=== PATIENT | female | born 1990 | race Caucasian/White ===

== ENCOUNTER 2017-03-19 12:45 | Inpatient (IN) | payer BC, OTHER ==
[2017-03-19] MEDS ORDERED: CARBOPROST TROMETHAMINE 250 MCG/ML 1 ML AMP IM PRN (13:53)
[2017-03-19] MEDS ORDERED: OXYTOCIN 10 UNIT/ML 1 ML VIAL IM PRN (13:53)
[2017-03-19] MEDS ORDERED: PENICILLIN G POTASSIUM 5,000,000 UNIT in DEXTROSE 5% IN WATER 100 ML IV STA ×2 (13:53)
[2017-03-19] MEDS ORDERED: METHYLERGONOVINE 0.2 MG/ML 1 ML AMP IM PRN (13:53)
[2017-03-19] MEDS ORDERED: TERBUTALINE 1 MG/ML VIAL SQ PRN (13:53)
[2017-03-19] MEDS ORDERED: LIDOCAINE 1% (PF) 10 MG/ML (30 ML SDV) SQ PRN (13:53)
[2017-03-19] MEDS ORDERED: OXYTOCIN 20 UNITS/1000 ML NS 1,000 ML IV SCH ×2 (14:00→23:45)
[2017-03-19] MEDS: LACTATED RINGERS 1,000 ML IV SCH ×2 (14:19→20:01)
[2017-03-19 14:39] LABS: Basophils % (A) 0 %; CH 28.2; Eosinophils # (A) 0.1 k/uL (0-0.7); Eosinophils % (A) 1 %; HCT 35.9 % (34.0-46.0); HDW 2.84; HGB 12.4 gm/dL (11.4-16.0); Luc # (Auto) 0.41; Luc % (Auto) 4; Lymphocytes # (A) 1.9 k/uL (1.0-4.8); Lymphocytes % (A) 19 %; MCH 29.6 pg (25.0-35.0); MCHC 34.5 g/dL (31.0-37.0); MCV 85.9 fL (80.0-100.0); Mean Platelet Volume 8.3; Monocytes # (A) 0.3 k/uL (0-1.0); Monocytes % (A) 3 %; Neutrophils # (A) 7.2 k/uL (1.3-7.7); Neutrophils % (A) 73 %; RBC 4.18 m/uL (3.80-5.40); WBC 9.9 k/uL (3.8-10.6); WBC (Perox) 10.19
[2017-03-19 14:50] VITALS: BMI 35.7
--- NOTE | 2017-03-19 16:12 | P.HPOB ---
History of Present Illness H&P Date: 03/19/17 Chief Complaint: My water broke at 1040 this morning, clear fluid. This is a 26-year-old white female 2 para 1001 EDC 03/26/2017 at 39 weeks gestation. Patient presented this afternoon to labor and delivery with the history of her water breaking this morning at 10:44 AM, clear fluid. She has had only rare mild uterine contractions to follow. Fetus is been active throughout the . history: Blood type is O+, rubella status immune. [place] strep cultures positive. Hepatitis B surface antigen, HIV testing, gonorrhea and chlamydia cultures, Pap smear all negative. One-hour Glucola 139, repeat 147 with normal three-hour GTT. Rubella status is immune. Hemoglobin A1c 5.4. Past medical history is significant for anxiety. Past surgical history wisdom teeth extracted in the past. Current medications Zoloft 50 mg daily, vitamin daily. ALLERGIES none known. Family history significant for Crohn's disease, insulin-dependent diabetes, and cerebral palsy. Reproductive history patient had a vaginal delivery at 42 weeks gestation of 7 lbs. 14 oz. female at [facility]. This baby has a history of seizures. On exam this is a pleasant white female, 5 foot 9 inches, 242 pounds, blood pressure on admission 118/74, general physical exam within normal limits. heart tones are in the 130s with frequent accelerations consistent with reactive NST. Uterine contractions are occurring spontaneously approximately every 5 minutes apart of mild intensity. Cervix is 4 cm dilated, 60-70% effaced , -2 station, vertex presentation. One dose of penicillin G antibiotics has been given at time of this dictation. Impression: 39 week intrauterine , spontaneous amniorrhexis, in early phases of labor. Positive group B strep cultures, one dose of antibiotics received. Plan we will proceed with oxytocin augmentation. Continue close maternal and surveillance. Continue penicillin G per hospital protocol. Anticipate normal spontaneous vaginal delivery. Review of Systems Negative except as in HPI Past Medical History Past Medical History: No Reported History History of Any Multi-Drug Resistant Organisms: None Reported Past Surgical History: No Surgical Hx Reported Past Anesthesia/Blood Transfusion Reactions: No Reported Reaction Additional Past Anesthesia/Blood Transfusion Reaction / Comment(s): Grandmother allergic to a lot of anesthesia medications and had difficulty breathing on one occasion. Past Psychological History: Anxiety Smoking Status: Former smoker Past Alcohol Use History: None Reported Past Drug Use History: None Reported Medications and Allergies Home Medications Medication Instructions Recorded Confirmed Type Ferrous Sulfate [Feosol] 325 mg PO DAILY 03/19/17 03/19/17 History Pnv,Calcium 72/Iron/Folic Acid 1 tab PO DAILY 03/19/17 03/19/17 History [ Plus Tablet] Sertraline [Zoloft] 50 mg PO DAILY 03/19/17 03/19/17 History Allergies Allergy/AdvReac Type Severity Reaction Status Date / Time No Known Allergies Allergy Verified 03/19/17 12:51 Exam - Vital Signs Vital signs: Vital Signs Temp Pulse Resp BP Pulse Ox 03/19/17 14:41 96.4 F L 90 16 100/58 03/19/17 12:55 97.9 F 87 18 118/74 98 Intake and Output 03/19/17 03/19/17 03/19/17 06:59 14:59 22:59 Other: # Voids 2 # Bowel Movements 0 Weight 109.769 kg Patient Weight 03/20/17 06:59 Weight 109.769 kg As noted under HPI. Results Result Diagrams: 03/19/17 14:02 Abnormal Lab Results - Last 24 Hours (Table) 03/19/17 Range/Units 14:02 RDW 16.0 H (11.5-15.5) % Assessment and Plan Plan: Continue penicillin G prophylaxis per hospital protocol. Anticipate 2 doses received prior to delivery. Begin oxytocin augmentation per hospital protocol. Continue close maternal and surveillance. Anticipate normal spontaneous vaginal delivery. Time with Patient: Less than 30
[2017-03-19] MEDS: PENICILLIN G POTASSIUM 2,500,000 UNIT in DEXTROSE 5% IN WATER 100 ML IV SCH ×4 (18:20→22:24)
[2017-03-19] MEDS ORDERED: SODIUM CHLORIDE 0.9% 100 ML BAG ONE (20:04)
[2017-03-19] MEDS ORDERED: fentaNYL (PF) 50 MCG/ML 5 ML AMP ONE (20:04)
[2017-03-19] MEDS ORDERED: BUPIVACAINE (PF) 0.25% 30 ML VIAL ONE (20:04)
[2017-03-19] MEDS ORDERED: BUPIVACAINE (PF) 0.25% 25 ML, fentaNYL (PF) 200 MCG in SODIUM CHLORIDE 0.9% 71 ML EPIDURAL ONE (20:44)
--- NOTE | 2017-03-19 23:31 | P.PROBDLV ---
Vaginal Delivery Note - . Vaginal Delivery Note: Findings: Female in the vertex right occiput anterior position with Apgars of 9 at 1 minute and 9 at 5 minutes. Weight pending at time of this dictation. Intact, three-vessel cord placenta with marginal cord insertion noted. Second-degree perineal laceration. EBL approximately 150 mL's. Delivery summary: This is a 26-year-old 2 para 1001 woman who presented at 39 weeks gestation with spontaneous rupture of membranes not in active labor. She is known group B strep positive and prophylactic antibiotics were initiated per protocol. Upon admission she was 4 cm dilated and she had slow progression to 5 cm dilated. She received an epidural anesthetic and Pitocin augmentation was initiated. At 7 cm dilated large for bag was artificially ruptured and copious clear fluid was noted. She then rapidly progressed to complete cervical dilation. She was repositioned, prepped and draped in the dorsal modified lithotomy position. With maternal effort 3 the head rapidly delivered from the right occiput anterior position. The nose and mouth were bulb suctioned. The anterior followed by the posterior shoulders were delivered without difficulty and the rest of the infant was delivered onto the field. The nose and mouth were further bulb suctioned. The infant was placed on the maternal abdomen where the cord was clamped and cut. Evaluation the delivery room showed Apgars of 9 at 1 minute and 9 at 5 minutes. The perineum was inspected and a shallow second-degree laceration was noted. This was infused with lidocaine and repaired with 3-0 Vicryl suture in the usual fashion. An intact, three-vessel cord placenta was expressed. This was inspected and a marginal cord insertion was noted. The uterus was massaged and was noted to be firm. The rest of the vagina and the cervix were inspected and no further lacerations were noted. The uterus was firm at the level of the umbilicus. Both mother and infant were doing well post delivery in the room.
[2017-03-19] MEDS ORDERED: SIMETHICONE 80 MG CHEWABLE PO PRN (23:32)
[2017-03-19] MEDS ORDERED: HYDROCORTISONE 2.5% RECTAL CREAM 30 GM TUBE RECTAL PRN (23:32)
[2017-03-19] MEDS ORDERED: LANOLIN CREAM 5 GM TUBE TOPICAL PRN (23:32)
[2017-03-19] MEDS ORDERED: WITCH HAZEL 1 EACH MED..PAD TOPICAL PRN (23:32)
[2017-03-19] MEDS ORDERED: diphenhydrAMINE 50 MG CAP PO PRN (23:32)
[2017-03-19] MEDS ORDERED: diphenhydrAMINE 50 MG/ML 1 ML VIAL IVP PRN ×2 (23:32)
[2017-03-19] MEDS ORDERED: ZOLPIDEM 5 MG TAB PO PRN (23:32)
[2017-03-19] MEDS ORDERED: diphenhydrAMINE 25 MG CAP PO PRN (23:32)
[2017-03-19] MEDS ORDERED: BENZOCAINE/MENTHOL SPRAY 1 GM/SPRAY AEROSOL TOPICAL PRN (23:32)
[2017-03-19] MEDS ORDERED: ACETAMINOPHEN TAB 325 MG TAB PO PRN (23:32)
[2017-03-20] MEDS: IBUPROFEN 600 MG TAB PO PRN ×3 (03:20→19:46)
[2017-03-20] MEDS: LACTATED RINGERS 1,000 ML IV SCH (07:10)
--- NOTE | 2017-03-20 07:32 | P.PNOBGVD ---
Subjective - Subjective Principal diagnosis: day 1 Interval history: Feeling well, complaining of cramping. Moderate lochia. Patient reports: Reports appetite normal, Reports voiding normally, Reports pain well controlled, Reports ambulating normally [place]: doing well Objective - Latest Vital Signs Latest vital signs: Vital Signs Temp Pulse Resp BP Pulse Ox 03/20/17 04:00 98.3 F 86 16 100/53 03/20/17 01:25 96.8 F L 84 16 98/51 03/20/17 00:55 96.8 F L 83 16 97/55 03/20/17 00:25 97.4 F L 81 16 103/53 03/20/17 00:10 81 16 125/56 03/19/17 23:55 97.4 F L 86 16 92/52 03/19/17 23:40 82 16 152/57 03/19/17 23:25 97.3 F L 90 16 115/56 03/19/17 14:41 96.4 F L 90 16 100/58 03/19/17 12:55 97.9 F 87 18 118/74 98 Intake and Output 03/19/17 03/20/17 03/20/17 22:59 06:59 14:59 Intake Total 1600 268.5 Output Total 150 Balance 1600 118.5 Intake: IV 1300 250 Lactated Ringers 1,000 ml 1200 @ 125 mls/hr IV .Q8H DAV Rx#:[id number] Penicillin G Potassium 2, 100 500,000 unit In Dextrose 5% in Water 100 ml @ 100 mls/hr IV Q4H DAV Rx#: [id number] Intake, IV Titration 18.5 Amount Oxytocin 20 Units/1000 ml 18.5 Ns 1,000 ml @ 1 MILLIUNIT/MIN 3 mls/hr IV .Q24H DAV Rx#:[id number] Oral 300 Output: Estimated Blood Loss 150 Other: # Voids 1 1 - Exam Extremities: Present: normal Abdomen: Present: normal appearance, soft Uterus: Present: normal, firm - Labs Labs: Abnormal Lab Results - Last 24 Hours (Table) 03/19/17 Range/Units 14:02 RDW 16.0 H (11.5-15.5) % Assessment and Plan (1) Perineal laceration with delivery, second degree Current Visit: Yes Status: Acute Code(s): O70.1 - SECOND DEGREE PERINEAL LACERATION DURING DELIVERY SNOMED Code(s): 5498114 (2) Spontaneous rupture of membranes Current Visit: Yes Status: Acute Code(s): DSO5618 - SNOMED Code(s): 953126561 (3) Normal spontaneous vaginal delivery Narrative/Plan: 26-year-old 2 now para 2 woman spell status post normal spontaneous vaginal delivery, day 1. Recovering well. Routine care. Anticipate discharge home tomorrow. Current Visit: Yes Status: Acute Code(s): O80 - ENCOUNTER FOR FULL-TERM UNCOMPLICATED DELIVERY SNOMED Code(s): 73972223 (4) GBS (group B Streptococcus carrier), +RV culture, currently Current Visit: Yes Status: Acute Code(s): O99.820 - STREPTOCOCCUS B CARRIER STATE COMPLICATING SNOMED Code(s): 53722427
[2017-03-20] MEDS: SENNOSIDES-DOCUSATE SODIUM 1 EACH TAB PO SCH ×2 (07:51→19:46)
[2017-03-20] MEDS: Acetaminophen-Codeine 300-30mg TAB PO PRN ×2 (15:34→23:14)
[2017-03-21] MEDS: SENNOSIDES-DOCUSATE SODIUM 1 EACH TAB PO SCH (07:49)
[2017-03-21] MEDS: IBUPROFEN 600 MG TAB PO PRN (07:49)
[2017-03-21 07:52] VITALS: BP 112/66; PULSE 74; RESP 18; TEMP 98
--- NOTE | 2017-03-21 09:23 | P.DS ---
Providers Date of admission: 03/19/17 13:37 Expected date of discharge: 03/21/17 Attending physician: Marleni Marshall Primary care physician: Stated None Hospital Course: This is a 26-year-old white female 2 para 1001 EDC 03/26/2017 at 39 weeks gestation. Patient presented to the hospital with complaint of spontaneous amniorrhexis which occurred at approximately 10:45 in the morning, clear fluid. Her was remarkable for positive group B strep cultures, rubella status immune, blood type O positive. Please see dictated history and physical for details. Penicillin G prophylaxis was started and the patient did receive 2 doses prior to delivery. She went on to deliver a liveborn female with scores of 9 and 9 at one and 5 minutes respectively. weight 8 lbs. 10 oz. or 3925 g. There was a small second-degree perineal laceration easily repaired. Please see dictated delivery note for details. This morning the patient is doing well. She is voiding, ambulating and passing flatus without difficulty. Vital signs are stable and she is afebrile. Fundus is firm and in the midline, symmetric, 18 week size, nontender. Extremities reveal no edema. Breasts are not engorged. Lochia is light to medium. Patient is judged to be in excellent condition for discharge home. She will follow-up in the office with me in 6 weeks. We have reviewed briefly her options for contraception and she will discuss this further with her and we will make a decision at the 6 week visit. She is reminded no intercourse, tampons or douching. She will use ibuprofen products as needed for pain, 200 mg pills, 3 every 6 hours as needed. I've asked her to call me with any fevers shakes or chills, foul smelling or copious lochia, with the passage of large blood clots, with any pain not alleviated by ibuprofen products , or indeed with any difficulties or concerns.* Patient Condition at Discharge: Good Plan - Discharge Summary New Discharge Prescriptions: No Action Sertraline [Zoloft] 50 mg PO DAILY Pnv,Calcium 72/Iron/Folic Acid [ Plus Tablet] 1 tab PO DAILY Ferrous Sulfate [Feosol] 325 mg PO DAILY Discharge Medication List Ferrous Sulfate [Feosol] 325 mg PO DAILY 03/19/17 [History] Pnv,Calcium 72/Iron/Folic Acid [ Plus Tablet] 1 tab PO DAILY 03/19/17 [ History] Sertraline [Zoloft] 50 mg PO DAILY 03/19/17 [History] Follow up Appointment(s)/Referral(s): Marleni Marshall MD [STAFF PHYSICIAN] - 6 Weeks Discharge Disposition: HOME SELF-CARE
== END 2017-03-21 14:45 | disposition home or self-care (01) | DRG 775 ==
LOC: FBPOP 12:45 → 4FBP 13:37
PROVIDERS: ADMIT Obstetrics & Gynecology; ATTEND Obstetrics & Gynecology
PROC: 10E0XZZ Delivery of Products of Conception, External Approach (ICD-10-PCS; principal; 2017-03-19)
PROC: 0KQM0ZZ Repair Perineum Muscle, Open Approach (ICD-10-PCS; 2017-03-19)
PROC: 00HU33Z Insertion of Infusion Device into Spinal Canal, Percutaneous Approach (ICD-10-PCS; 2017-03-19)
PROC: 3E0R3CZ (ICD-10-PCS; 2017-03-19)
DX: O99.824 Streptococcus B carrier state complicating childbirth (principal); O99.344 Other mental disorders complicating childbirth; F41.9 Anxiety disorder, unspecified; O70.1 Second degree perineal laceration during delivery; Z37.0 Single live birth; Z3A.39 39 weeks gestation of pregnancy; Z87.891 Personal history of nicotine dependence; O43.193 Other malformation of placenta, third trimester; Z79.899 Other long term (current) drug therapy
CPT/HCPCS: 59025; 84112; 85025; 88307; 99213

== ENCOUNTER 2021-01-28 06:00 | Inpatient (IN) | payer OTHER ==
[2021-01-28] MEDS ORDERED: LIDOCAINE 0.5% (PF) 5 MG/ML (50 ML SDV) SQ PRN (06:19)
[2021-01-28] MEDS ORDERED: METHYLERGONOVINE 0.2 MG/ML 1 ML AMP IM PRN (06:19)
[2021-01-28] MEDS ORDERED: OXYTOCIN 10 UNIT/ML 1 ML VIAL IM PRN (06:19)
[2021-01-28] MEDS ORDERED: CARBOPROST TROMETHAMINE 250 MCG/ML 1 ML AMP IM PRN (06:19)
[2021-01-28] MEDS ORDERED: TERBUTALINE 1 MG/ML VIAL SQ PRN (06:19)
[2021-01-28] MEDS ORDERED: PENICILLIN G POTASSIUM 5,000,000 UNIT in DEXTROSE 5% IN WATER 100 ML IVPB STA ×2 (06:22)
[2021-01-28] MEDS ORDERED: LACTATED RINGERS 1,000 ML IV SCH ×2 (06:30)
[2021-01-28] MEDS ORDERED: OXYTOCIN 30 UNITS/500 ML NS 30 UNIT in SALINE 1 500ML.BAG IV SCH (06:30)
[2021-01-28 07:00] LABS: Anisocytosis Slight; Basophils % (A) 0 %; Eosinophils # (A) 0.2 k/uL (0-0.7); Eosinophils % (A) 2 %; HCT 37.6 % (34.0-46.0); HGB 12.7 gm/dL (11.4-16.0); Lymphocytes # (A) 2.4 k/uL (1.0-4.8); Lymphocytes % (A) 25 %; MCH 29.9 pg (25.0-35.0); MCHC 33.9 g/dL (31.0-37.0); MCV 88.1 fL (80.0-100.0); Mean Platelet Volume 8.6; Monocytes # (A) 0.4 k/uL (0-1.0); Monocytes % (A) 5 %; Neutrophils # (A) 6.5 k/uL (1.3-7.7); Neutrophils % (A) 67 %; Platelet Count 215 k/uL (150-450); RBC 4.26 m/uL (3.80-5.40); RDW 16.1 % (11.5-15.5); WBC 9.8 k/uL (3.8-10.6)
--- NOTE | 2021-01-28 09:17 | P.HPOB ---
History of Present Illness H&P Date: 01/28/21 Chief Complaint: Here for elective induction of labor, favorable multiparous cervix This is a 30-year-old female 3 para 2001 EDC 02/03/2021 at 39 weeks gestation. Patient presents this morning for induction with favorable multiparous cervix. Fetus is been active throughout the . She denies vaginal bleeding or fluid leakage. history is significant for blood type O positive, rubella status immune. Group B strep cultures positive. Rubella status immune. VDRL testing, hepatitis B surface antigen, HIV testing, gonorrhea and chlamydia cultures, urine culture negative. One-hour Glucola within normal limits. Past medical history significant for anxiety. Past surgical history wisdom teeth extracted in the past. Current medications vitamin daily, baby aspirin daily, Zoloft 50 mg daily. ALLERGIES none known. Family history significant for diabetes, Crohn's disease, cerebral palsy, thyroid disorder. Obstetric history significant for normal spontaneous vaginal deliveries 2, at [facility] in [place]. Social history patient has never been a smoker, she is , her is present. She denies alcohol or drug use. On exam patient is 5 foot 9 inches, 240 pounds, blood pressure 112/74, pulse 86. The general physical exam is within normal limits. Cervix is 3 cm dilated, 60% effaced, -2 station, vertex presentation. Artificial amniorrhexis reveals clear fluid. heart rate is consistent with reactive NST. Impression: 39 week intrauterine , here for induction of labor, all signs reassuring. Plan: Penicillin G per hospital protocol. Oxytocin per hospital protocol. Close maternal and surveillance. Analgesic options reviewed with the patient. Anticipate normal spontaneous vaginal delivery. Review of Systems Constitutional: Reports as per HPI Past Medical History Past Medical History: No Reported History History of Any Multi-Drug Resistant Organisms: None Reported Past Surgical History: No Surgical Hx Reported Past Anesthesia/Blood Transfusion Reactions: No Reported Reaction Additional Past Anesthesia/Blood Transfusion Reaction / Comment(s): Grandmother allergic to a lot of anesthesia medications and had difficulty breathing on one occasion. Past Psychological History: Anxiety Smoking Status: Never smoker Past Alcohol Use History: None Reported Past Drug Use History: None Reported - Past Family History Mother Family Medical History: Diabetes Mellitus Medications and Allergies Home Medications Medication Instructions Recorded Confirmed Type Ferrous Sulfate [Feosol] 325 mg PO DAILY 03/19/17 01/28/21 History Pnv,Calcium 72/Iron/Folic Acid 1 tab PO DAILY 03/19/17 01/28/21 History [ Plus Tablet] Sertraline [Zoloft] 50 mg PO DAILY 03/19/17 01/28/21 History Aspirin 1 tab PO ONCE 01/28/21 01/28/21 History Allergies Allergy/AdvReac Type Severity Reaction Status Date / Time No Known Allergies Allergy Verified 01/28/21 06:18 Exam Vital Signs Temp Pulse Resp BP Pulse Ox 01/28/21 06:27 96.5 F L 86 16 112/74 97 Intake and Output 01/27/21 01/28/21 01/28/21 22:59 06:59 14:59 Other: Weight 108.862 kg See dictation under HPI please Results Result Diagrams: 01/28/21 06:30 Abnormal Lab Results - Last 24 Hours (Table) 01/28/21 Range/Units 06:30 RDW 16.1 H (11.5-15.5) % Assessment and Plan Assessment: 39 week intrauterine , here for induction of labor, all signs reassuring. Positive group B strep status noted. Plan: Penicillin G per hospital protocol. Close maternal and surveillance. Anticipate normal spontaneous vaginal delivery. Analgesic options discussed. Time with Patient: Less than 30
[2021-01-28] MEDS ORDERED: PENICILLIN G POTASSIUM 2,500,000 UNIT in DEXTROSE 5% IN WATER 100 ML IVPB SCH ×2 (11:00)
[2021-01-28] MEDS ORDERED: SODIUM CHLORIDE 0.9% 100 ML BAG ONE (13:04)
[2021-01-28] MEDS ORDERED: ROPIVACAINE 5MG/ML 20ML VIAL ONE (13:04)
[2021-01-28] MEDS ORDERED: fentaNYL (PF) 50 MCG/ML 5 ML AMP ONE (13:04)
[2021-01-28] MEDS ORDERED: HYDROCORTISONE 2.5% RECTAL CREAM 30 GM TUBE RECTAL PRN (14:13)
[2021-01-28] MEDS ORDERED: LANOLIN CREAM 5 GM TUBE TOPICAL PRN (14:13)
[2021-01-28] MEDS ORDERED: SIMETHICONE 80 MG CHEWABLE PO PRN (14:13)
[2021-01-28] MEDS ORDERED: BENZOCAINE/MENTHOL SPRAY 1 GM/SPRAY AEROSOL TOPICAL PRN (14:13)
[2021-01-28] MEDS ORDERED: ZOLPIDEM 5 MG TAB PO PRN (14:13)
[2021-01-28] MEDS ORDERED: ACETAMINOPHEN TAB 325 MG TAB PO PRN (14:13)
[2021-01-28] MEDS ORDERED: diphenhydrAMINE 50 MG/ML 1 ML VIAL IVP PRN ×2 (14:13)
[2021-01-28] MEDS ORDERED: diphenhydrAMINE 50 MG CAP PO PRN (14:13)
[2021-01-28] MEDS ORDERED: diphenhydrAMINE 25 MG CAP PO PRN (14:13)
--- NOTE | 2021-01-28 14:13 | P.PROBDLV ---
Vaginal Delivery Note - . Vaginal Delivery Note: This is a 30-year-old white female 3 para 2001 EDC 02/03/2021 at 39 weeks gestation. Patient presented for induction with favorable multiparous cervix. remarkable for group B strep cultures positive, rubella status immune, blood type O+. Please see dictated history and physical for details. Oxytocin was started and titrated per hospital protocol. Patient did receive 2 doses of penicillin G per our hospital protocol. Epidural was placed per her request. She became completely dilated at 1343 hrs. Perineal body was prepped and draped in usual sterile fashion.With excellent maternal expulsive efforts and 2 contractions the infant's head delivered occiput anterior and restituted accordingly. There was a nuchal cord 1 that was reduced. The left or anterior shoulder was delivered from underneath the pubic symphysis at which time the yamileth pharynx, nasopharynx, and external nares were all bulb suctioned on the perineal body. Patient was officially delivered of a liveborn male at 1400 hrs. Umbilical cord is doubly clamped and ligated, he is handed to waiting nurses for evaluation where scores of 9 and 9 at one and 5 minutes respectively were given. There was a true knot noted in the umbilical cord. Placenta delivered spontaneously, inspected and noted to be intact with trivascular cord at 1402 hrs. Careful inspection of the cervix, vagina, perineum, periurethral, and perirectal areas revealed a small first-degree midline perineal laceration. This was repaired in the usual fashion using 3-0 Rapide. Total estimated blood loss 200 mL's. Infant weighed 12/21/2004 grams or 9 lbs. 4 oz. Patient is requesting c ircumcision for her infant son. She and her family are allowed to begin the bonding experience in the LDR. Please note that cord blood was sent to the lab for O+ blood type.
[2021-01-28] MEDS: IBUPROFEN 600 MG TAB PO SCH ×2 (15:30→22:05)
[2021-01-28 17:09] VITALS: RESP 16
[2021-01-28] MEDS: SENNOSIDES-DOCUSATE SODIUM 1 EACH TAB PO SCH (22:05)
[2021-01-28 23:42] VITALS: TEMP 98.2
[2021-01-29 06:31] LABS: Anisocytosis Slight; Basophils % (A) 0 %; Eosinophils # (A) 0.2 k/uL (0-0.7); Eosinophils % (A) 1 %; HCT 34.3 % (34.0-46.0); HGB 11.5 gm/dL (11.4-16.0); Lymphocytes # (A) 2.6 k/uL (1.0-4.8); Lymphocytes % (A) 20 %; MCH 29.9 pg (25.0-35.0); MCHC 33.4 g/dL (31.0-37.0); MCV 89.5 fL (80.0-100.0); Mean Platelet Volume 8.6; Monocytes # (A) 0.6 k/uL (0-1.0); Monocytes % (A) 4 %; Neutrophils # (A) 9.8 k/uL (1.3-7.7); Neutrophils % (A) 73 %; Platelet Count 200 k/uL (150-450); RBC 3.84 m/uL (3.80-5.40); RDW 16.2 % (11.5-15.5); WBC 13.5 k/uL (3.8-10.6)
[2021-01-29] MEDS: SENNOSIDES-DOCUSATE SODIUM 1 EACH TAB PO SCH (09:13)
[2021-01-29] MEDS: IBUPROFEN 600 MG TAB PO SCH (09:14)
[2021-01-29 09:20] VITALS: BP 109/69; PULSE 72
--- NOTE | 2021-01-29 09:26 | P.DS ---
Providers Date of admission: 01/28/21 06:12 Expected date of discharge: 01/29/21 Attending physician: Marleni Marshall Primary care physician: Stated None Hospital Course: This is a 30-year-old white female 3 para 2001 EDC 02/03/2021 who presented at 39 weeks gestation with favorable multiparous cervix for induction of labor. Fetus is been active throughout the . remarkable for positive group B strep cultures, rubella status immune, blood type O positive. Please see dictated history and physical for details. Patient was admitted, artificial amniorrhexis revealed clear fluid. Epidural was placed per her request. Oxytocin was started and titrated per hospital protocol. Patient did receive 2 doses of penicillin G as per our protocol. She went on to deliver vaginally a liveborn male with scores of 9 and 9 at one and 5 minutes respectively. Infant had a nuchal cord times one along with a true knot in the cord. He weighed 9 lbs. 4 oz. or 12/21/2004 grams. Please see my dictated delivery note for details. Estimated blood loss 200 mL, first-degree perineal laceration easily repaired. This morning the patient is doing well. She is voiding, and bleeding, passing flatus without difficulty. Vital signs are stable and she is afebrile. Fundus is firm and in the midline, symmetric and 18 week size. Extremities are negative for edema. [place] is doing well, circumcision will be performed later this morning. Patient is judged to be in very good condition for discharge home. She will follow-up with me in the office in 6 weeks. I have reminded her no intercourse, tampons or douching. She will use [id number]-oclyeid Advil or Aleve, or Motrin as needed for pain. She will call with any fevers shakes or chills, foul smelling or copious lochia, with the passage of large blood clots, with any pain not alleviated by [id number] products, or indeed with any concerns. We have briefly discussed contraception and we'll review details later in the office. Assessment: Doing well day #1 Patient Condition at Discharge: Good Plan - Discharge Summary Discharge Rx Participant: No New Discharge Prescriptions: No Action Sertraline [Zoloft] 50 mg PO DAILY Pnv,Calcium 72/Iron/Folic Acid [ Plus Tablet] 1 tab PO DAILY Ferrous Sulfate [Feosol] 325 mg PO DAILY Aspirin 1 tab PO ONCE Discharge Medication List Ferrous Sulfate [Feosol] 325 mg PO DAILY 03/19/17 [History] Pnv,Calcium 72/Iron/Folic Acid [ Plus Tablet] 1 tab PO DAILY 03/19/17 [History] Sertraline [Zoloft] 50 mg PO DAILY 03/19/17 [History] Aspirin 1 tab PO ONCE 01/28/21 [History] Follow up Appointment(s)/Referral(s): Marleni Marshall MD [STAFF PHYSICIAN] - 6 Weeks Discharge Disposition: HOME SELF-CARE
== END 2021-01-29 15:33 | disposition home or self-care (01) | DRG 807 ==
LOC: 4FBP 06:12
PROVIDERS: ADMIT Obstetrics & Gynecology; ATTEND Obstetrics & Gynecology
PROC: 10E0XZZ Delivery of Products of Conception, External Approach (ICD-10-PCS; principal; 2021-01-28)
PROC: 0HQ9XZZ Repair Perineum Skin, External Approach (ICD-10-PCS; 2021-01-28)
DX: O69.2XX0 Labor and delivery complicated by other cord entanglement, with compression, not applicable or unspecified (principal); Z37.0 Single live birth; O69.81X0 Labor and delivery complicated by cord around neck, without compression, not applicable or unspecified; O70.0 First degree perineal laceration during delivery; Z3A.39 39 weeks gestation of pregnancy; Z79.82 Long term (current) use of aspirin; Z79.899 Other long term (current) drug therapy; Z83.3 Family history of diabetes mellitus
CPT/HCPCS: 85025; 86850; 86900; 86901

== ENCOUNTER 2024-07-24 09:49 | Emergency (ER) | payer BC, OTHER ==
[2024-07-24 09:53] VITALS: PULSE 62; RESP 18; TEMP 98.3
[2024-07-24 09:54] VITALS: BP 111/65
[2024-07-24] MEDS: DIPH,PERTUS(ACELL)TETVAC-LF 0.5 ML VIAL IM ONE (10:07)
[2024-07-24] MEDS: LIDOCAINE 1%-EPI 1:100,000 20 ML VIAL SQ STA (10:08)
--- NOTE | 2024-07-24 10:24 | ED ---
General Adult HPI - General Chief complaint: Animal Bite Stated complaint: Dog bite Time Seen by Provider: 07/24/24 09:55 Source: patient Mode of arrival: ambulatory Limitations: no limitations - History of Present Illness Initial comments: Dictation was produced using [employer] dictation software. please excuse any grammatical, word or spelling errors. Chief Complaint: 34-year-old female presents with dog bite History of Present Illness: Patient 34-year-old female presents to the emergency department after dog bite on her right hand. Patient states that she noticed her dog was having a seizure. She reached down to help the dog when the dog bit her. Patient is not sure if her tetanus is up-to-date. Dog was up-to-date on shots. Dog did get rabies vaccines. The ROS documented in this emergency department record has been reviewed and confirmed by me. Those systems with pertinent positive or negative responses have been documented in the HPI. All other systems are other negative and/or noncontributory. - Related Data Home Medications Medication Instructions Recorded Confirmed Ferrous Sulfate [Feosol] 325 mg PO DAILY 03/19/17 01/28/21 Pnv,Calcium 72/Iron/Folic Acid 1 tab PO DAILY 03/19/17 01/28/21 [ Plus Tablet] Sertraline [Zoloft] 50 mg PO DAILY 03/19/17 01/28/21 Aspirin 1 tab PO ONCE 01/28/21 01/28/21 Previous Rx's Medication Instructions Recorded Amoxic-Pot Clav 875-125Mg 1 tab PO BID 7 Days #14 tab 07/24/24 [Augmentin 875-125] Allergies Allergy/AdvReac Type Severity Reaction Status Date / Time No Known Allergies Allergy Verified 07/24/24 09:53 Review of Systems ROS Statement: Those systems with pertinent positive or pertinent negative responses have been documented in the HPI. ROS Other: All systems not noted in ROS Statement are negative. Past Medical History Past Medical History: No Reported History History of Any Multi-Drug Resistant Organisms: None Reported Past Surgical History: No Surgical Hx Reported Past Anesthesia/Blood Transfusion Reactions: No Reported Reaction Additional Past Anesthesia/Blood Transfusion Reaction / Comment(s): Grandmother allergic to a lot of anesthesia medications and had difficulty breathing on one occasion. Past Psychological History: Anxiety Smoking Status: Never smoker Past Alcohol Use History: None Reported Past Drug Use History: None Reported - Past Family History Mother Family Medical History: Diabetes Mellitus General Exam - General Exam Comments Initial Comments: General: Well-appearing, nontoxic, no acute distress. Head: Normocephalic, atraumatic Eyes: PERRLA, EOMI ENT: Airway patent Chest: Nonlabored breathing Skin: No visual rash, normal skin tone Neuro: Alert and oriented 3 Musculoskeletal: No gross abnormalities Right hand: Multiple puncture wounds to the wrist. There does appear to be a 2 cm simple laceration to the dorsum of the right index finger. Function of the right hand is intact Limitations: no limitations Course Vital Signs 07/24/24 09:50 Temperature 98.3 F Pulse Rate 62 Respiratory 18 Rate Blood Pressure 111/65 O2 Sat by Pulse 100 Oximetry Procedures - Laceration Laceration #1 Consent Obtained: verbal consent Indication: laceration Site: hand Description: linear Anesthetic Used: lidocaine 1% Anesthesia Technique: local infiltration Pre-repair: irrigated extensively Size of Sutures: 4-0 Number of Sutures: 3 Patient Tolerated Procedure: well Medical Decision Making - Medical Decision Making Was pt. sent in by a medical professional or institution (, PA, FIRE RANGER, urgent care, hospital, or [facility]...) When possible be specific @ -No Did you speak to anyone other than the patient for history (EMS, parent, family, police, friend...)? What history was obtained from this source @ -No Did you review nursing and triage notes (agree or disagree)? Why? @ -I reviewed and agree with nursing and triage notes Were old charts reviewed (outside hosp., previous admission, EMS record, old EKG, old radiological studies, urgent care reports/EKG's, [facility] records)? Report findings @ -No old charts were reviewed Differential Diagnosis (chest pain, altered mental status, abdominal pain women, abdominal pain men, vaginal bleeding, musculoskeletal, weakness, fever, dyspnea, syncope, headache, dizziness, GI bleed, back pain, seizure, CVA, palpatations, mental health)? @ -Dog bite, laceration, tendon injury EKG interpreted by me (3pts min.). @ -None done X-rays interpreted by me (1pt min.). @ -None done CT interpreted by me (1pt min.). @ -None done U/S interpreted by me (1pt. min.). @ -None done What testing was considered but not performed or refused? (CT, X-rays, U/S, labs)? Why? @ -None What meds were considered but not given or refused? Why? @ -None Was smoking cessation discussed for >3mins.? @ -No Were there social determinants of health that impacted care today? How? (Homelessness, low income, unemployed, alcoholism, drug addiction, transportation, low edu. Level, literacy, decrease access to med. care, long term, rehab)? @ -No Was there de-escalation of care discussed even if they declined (Discuss DNR or withdrawal of care, Hospice)? DNR status @ -No What co-morbidities impacted this encounter? (DM, HTN, Smoking, COPD, CAD, Cancer, CVA, ARF, Chemo, Hep., AIDS, mental health diagnosis, sleep apnea, morbid obesity)? @ -None Was patient admitted / discharged? Hospital course, mention meds given and route, prescriptions, significant lab abnormalities, going to OR and other pertinent info. @ -34-year-old female with hand laceration after dog bite. Vital signs stable. No concern for rabies. Patient denies . Wound irrigated. Laceration loosely sutured. Patient prescribed Augmentin discharge. Return precautions discussed. Instruction for suture removal in 7 days Did you discuss the management of the patient with other professionals (professionals i.e. , PA, FIRE RANGER, lab, RT, psych nurse, socially responsible investment adviser, header boss, teacher, medical laboratory technical officer, case finisher)? Give summary @ -No Was critical care preformed (if so, how long)? @ -No Undiagnosed new problem with uncertain prognosis? @ -No Drug Therapy requiring intensive monitoring for toxicity (Heparin, Nitro, Insulin, Cardizem)? @ -No Were any procedures done? @ -No Diagnosis/symptom? Acute, or Chronic, or Acute on Chronic? Uncomplicated (without systemic symptoms) or Complicated (systemic symptoms)? @ -Dog bite, hand laceration Side effects of treatment? @ -No Exacerbation, Progression, or Severe Exacerbation? @ -No Poses a threat to life or bodily function? How? (Chest pain, [place], [place], pneumonia, PE, COPD, DKA, ARF, appy, cholecystitis, CVA, Diverticulitis, Homicidal, Suicidal, threat to staff... and all critical care pts) @ -yes Disposition Clinical Impression: Bite by animal Disposition: HOME SELF-CARE Condition: Good Instructions (If sedation given, give patient instructions): Animal Bite (ED) Additional Instructions: suture removal in 7 days Prescriptions: Amoxic-Pot Clav 875-125Mg [Augmentin 875-125] 1 tab PO BID 7 Days #14 tab Is patient prescribed a controlled substance at d/c from ED?: No Referrals: Lisa Birch MD [Primary Care Provider] - 1-2 days Time of Disposition: 10:24
== END 2024-07-24 10:27 | disposition home or self-care (01) ==
LOC: EC 09:49
DX: S61.451A Open bite of right hand, initial encounter (principal); Z23 Encounter for immunization; W54.0XXA Bitten by dog, initial encounter
CPT/HCPCS: 12001; 90471; 90715; 99283